=== PATIENT | female | born 1945 | race Caucasian/White ===

== ENCOUNTER 2023-03-27 11:30 | Inpatient (IN) | payer MEDICARE ==
[2023-03-27 12:05] LABS: #Basophils 0.1 10x3/uL (0.0-0.2); #Eosinphils 0.2 10x3/uL (0.0-0.5); #Monocytes 0.7 10x3/uL (0.0-1.1); #Neutrophils 6.7 10x3/uL (1.5-8.4); %Basophils 0.5 % (0.0-2.0); %Eosinophils 1.8 % (0.0-6.0); %Monocytes 7.6 % (0.0-10.0); %Neutrophils 72.8 % (40.0-75.0); Hemoglobin 14.2 g/dL (12.0-15.5); Mean Corpuscular HGB CONC 33.6 g/dL (32.0-36.0); Mean Corpuscular Volume 95.3 fl (81.6-98.3); Mean Platelet Volume 10.3 fl (7.4-10.4); Platelet Count 265 10x3/uL (150-450); RBC Distribution Width 13.3 % (11.5-14.5); Red Blood Cell (RBC) Count 4.44 10x6/uL (3.90-5.03); White Blood Cell (WBC) Count 9.2 10x3/uL (3.5-10.5)
[2023-03-27 12:18] LABS: ALT (SGPT) 16 U/L (8-55); AST (SGOT) 23 U/L (5-34); Albumin 4.4 g/dL (3.4-4.8); Alkaline Phosphatase 105 U/L (40-110); Anion Gap 16 mmol/L (10-20); BUN (Urea Nitrogen) 18 mg/dL (9.8-20.1); Bilirubin, Total 0.6 mg/dL (0.2-1.2); Calc. Creatinine Clearance 0 mL/min (70-130); Calcium 9.4 mg/dL (7.8-10.44); Carbon Dioxide 26 mmol/L (23-31); Chloride 98 mmol/L (98-107); Estimated GFR 63; Globulin 3.2 g/dL (2.4-3.5); Glucose 90 mg/dL (83-110); Potassium 4.4 mmol/L (3.5-5.1); Protein, Total 7.6 g/dL (5.8-8.1); Sodium 136 mmol/L (136-145)
[2023-03-27] MEDS ORDERED: Diltiazem 125 MG/25 ML SDV ONE (12:23)
[2023-03-27] MEDS ORDERED: Acetaminophen 325 MG TAB PO PRN (14:52)
[2023-03-27] MEDS ORDERED: Diltiazem 125 MG in Sodium Chloride 0.9% 100 ML IVPB SCH ×2 (15:00→16:16)
[2023-03-27 19:57] VITALS: BMI 28.0
[2023-03-27] MEDS ORDERED: Atorvastatin Calcium 40 MG TAB ONE (20:52)
[2023-03-27] MEDS ORDERED: Gabapentin 300 MG CAP ONE (20:52)
[2023-03-27] MEDS ORDERED: Atorvastatin Calcium 40 MG TAB PO SCH ×2 (21:00)
[2023-03-27] MEDS ORDERED: Gabapentin 300 MG CAP PO SCH (21:00)
[2023-03-28 04:06] LABS: Anion Gap 15 mmol/L (10-20); BUN (Urea Nitrogen) 25 mg/dL (9.8-20.1); Calc. Creatinine Clearance 51 mL/min (70-130); Calcium 8.2 mg/dL (7.8-10.44); Carbon Dioxide 26 mmol/L (23-31); Chloride 99 mmol/L (98-107); Estimated GFR 53; Glucose 89 mg/dL (83-110); Sodium 136 mmol/L (136-145)
[2023-03-28 04:09] LABS: #Basophils 0.1 10x3/uL (0.0-0.2); #Eosinphils 0.2 10x3/uL (0.0-0.5); #Monocytes 0.6 10x3/uL (0.0-1.1); #Neutrophils 4.1 10x3/uL (1.5-8.4); %Basophils 0.8 % (0.0-2.0); %Eosinophils 2.9 % (0.0-6.0); %Lymphocytes 24.2 % (18.0-47.0); %Monocytes 9.3 % (0.0-10.0); %Neutrophils 62.6 % (40.0-75.0); Hemoglobin 10.3 g/dL (12.0-15.5); Mean Corpuscular HGB CONC 34.1 g/dL (32.0-36.0); Mean Corpuscular Hemoglobin 32.3 pg (27.0-33.0); Mean Corpuscular Volume 94.7 fl (81.6-98.3); Mean Platelet Volume 10.2 fl (7.4-10.4); Platelet Count 205 10x3/uL (150-450); RBC Distribution Width 13.3 % (11.5-14.5); Red Blood Cell (RBC) Count 3.19 10x6/uL (3.90-5.03); White Blood Cell (WBC) Count 6.5 10x3/uL (3.5-10.5)
[2023-03-28] MEDS ORDERED: Dronedarone HCl 400 MG TAB PO SCH (08:00)
[2023-03-28] MEDS ORDERED: Oxybutynin ER 5 MG TAB PO SCH (09:00)
[2023-03-28] MEDS ORDERED: Clopidogrel Bisulfate 75 MG TAB PO SCH (09:00)
[2023-03-28] MEDS ORDERED: Escitalopram Oxalate 10 mg Tablet PO SCH (09:00)
[2023-03-28] MEDS ORDERED: Aspirin 81 mg Enteric Coated Tablet PO SCH ×2 (09:00)
[2023-03-28] MEDS ORDERED: Aspirin 81 mg Enteric Coated Tablet ONE (09:11)
[2023-03-28] MEDS ORDERED: Aspirin Chewable 81 MG TAB ONE (09:11)
[2023-03-28 12:04] LABS: Hemoglobin 11.7 g/dL (12.0-15.5)
[2023-03-28 12:12] VITALS: BP 135/73; TEMP 97.5
[2023-03-28] MEDS ORDERED: Apixaban 5 MG TAB PO SCH (21:00)
== END 2023-03-28 12:55 | disposition home or self-care (01) | DRG 309 ==
LOC: CSHERS 11:30 → CSHERHOLD 19:44
PROVIDERS: ADMIT Family Medicine; ATTEND Family Medicine
DX: I48.92 Unspecified atrial flutter (principal); J98.11 Atelectasis; I69.311 Memory deficit following cerebral infarction; I10 Essential (primary) hypertension; E78.5 Hyperlipidemia, unspecified; G62.9 Polyneuropathy, unspecified; M54.9 Dorsalgia, unspecified; G89.29 Other chronic pain; F39 Unspecified mood [affective] disorder; I48.91 Unspecified atrial fibrillation; I95.9 Hypotension, unspecified; R00.1 Bradycardia, unspecified; F03.90 Unspecified dementia, unspecified severity, without behavioral disturbance, psychotic disturbance, mood disturbance, and anxiety; Z87.891 Personal history of nicotine dependence; Z98.49 Cataract extraction status, unspecified eye; Z80.1 Family history of malignant neoplasm of trachea, bronchus and lung; Z98.890 Other specified postprocedural states; Z79.899 Other long term (current) drug therapy; Z79.82 Long term (current) use of aspirin; Z82.3 Family history of stroke
CPT/HCPCS: 36415; 70450; 71045; 80048; 80053; 84443; 84484; 85025; 93005; 93306; 96365; 96366; 96372; 96376; J1650

== ENCOUNTER 2023-06-05 22:41 | Emergency (ER) | payer MEDICARE ==
[2023-06-06 00:04] LABS: #Basophils 0.1 10x3/uL (0.0-0.2); #Eosinphils 0.2 10x3/uL (0.0-0.5); #Monocytes 0.4 10x3/uL (0.0-1.1); #Neutrophils 4.1 10x3/uL (1.5-8.4); %Basophils 0.8 % (0.0-2.0); %Eosinophils 3.1 % (0.0-6.0); %Lymphocytes 27.8 % (18.0-47.0); Hemoglobin 12.1 g/dL (12.0-15.5); Mean Corpuscular HGB CONC 33.4 g/dL (32.0-36.0); Mean Corpuscular Hemoglobin 31.9 pg (27.0-33.0); Mean Corpuscular Volume 95.5 fl (81.6-98.3); Mean Platelet Volume 11.2 fl (7.4-10.4); Platelet Count 252 10x3/uL (150-450); RBC Distribution Width 12.4 % (11.5-14.5); Red Blood Cell (RBC) Count 3.79 10x6/uL (3.90-5.03); White Blood Cell (WBC) Count 6.6 10x3/uL (3.5-10.5)
[2023-06-06 00:29] LABS: ALT (SGPT) 21 U/L (8-55); AST (SGOT) 23 U/L (5-34); Albumin 3.9 g/dL (3.4-4.8); Alkaline Phosphatase 100 U/L (40-110); Anion Gap 14 mmol/L (10-20); BUN (Urea Nitrogen) 20 mg/dL (9.8-20.1); Bilirubin, Total 0.8 mg/dL (0.2-1.2); Calc. Creatinine Clearance 0 mL/min (70-130); Calcium 9.2 mg/dL (7.8-10.44); Carbon Dioxide 25 mmol/L (23-31); Chloride 105 mmol/L (98-107); Estimated GFR 53; Globulin 3.3 g/dL (2.4-3.5); Glucose 89 mg/dL (83-110); Potassium 4.1 mmol/L (3.5-5.1); Protein, Total 7.2 g/dL (5.8-8.1); Sodium 140 mmol/L (136-145)
== END 2023-06-06 04:20 | disposition home or self-care (01) ==
LOC: CSHERS 22:41
DX: I48.91 Unspecified atrial fibrillation (principal); J90 Pleural effusion, not elsewhere classified; R06.02 Shortness of breath; Z87.891 Personal history of nicotine dependence
CPT/HCPCS: 71045; 80053; 83880; 84484; 85025; 93005

== ENCOUNTER 2025-08-25 17:44 | Inpatient (IN) | payer MEDICARE ==
[2025-08-25 19:44] VITALS: BMI 25.7
[2025-08-25] MEDS ORDERED: Ondansetron PF 4 MG/2 ML Vial IVP PRN (19:55)
[2025-08-25] MEDS ORDERED: Acetaminophen 325 MG TAB PO PRN (19:55)
[2025-08-25] MEDS ORDERED: Guaifenesin DM 100-10/5 ML UDCUP PO PRN (19:55)
[2025-08-25] MEDS ORDERED: Electrolyte Replacement Protocol 1 EACH FS PRN (20:00)
[2025-08-25 20:49] LABS: #Basophils 0.04 10x3/uL (0.0-0.2); #Eosinophils Less than 0.03 10x3/uL (0.0-0.5); #Monocytes 0.88 10x3/uL (0.0-1.1); #Neutrophils 16.30 10x3/uL (1.5-8.4); %Basophils 0.2 % (0.0-2.0); %Eosinophils 0.1 % (0.0-6.0); %Lymphocytes 7.2 % (18.0-47.0); %Monocytes 4.7 % (0.0-10.0); %Neutrophils 87.5 % (40.0-75.0); Hematocrit 43.0 % (34.9-44.5); Hemoglobin 14.5 g/dL (12.0-15.5); Mean Corpuscular Hemoglobin 30.0 pg (27.0-33.0); Mean Corpuscular Volume 89.0 fL (81.6-98.3); Platelet Count 293 10x3/uL (150-450); Red Blood Cell (RBC) Count 4.83 10x6/uL (3.90-5.03); White Blood Cell (WBC) Count 18.62 10x3/uL (3.5-10.5)
[2025-08-25 21:04] LABS: ALT (SGPT) 8 U/L (Less than 34); AST (SGOT) 24 U/L (11-34); Albumin 3.4 g/dL (3.1-4.5); Alkaline Phosphatase 88 U/L (40-110); Anion Gap 15 mmol/L (10-20); BUN (Urea Nitrogen) 22 mg/dL (9.8-20.1); Bilirubin, Total 1.0 mg/dL (0.3-1.2); Calc. Creatinine Clearance 36 mL/min (70-130); Calcium 8.9 mg/dL (7.8-10.44); Carbon Dioxide 26 mmol/L (23-31); Chloride 102 mmol/L (98-107); Globulin 4.1 g/dL (2.4-3.5); Glucose 101 mg/dL (83-110); Potassium 3.8 mmol/L (3.5-5.1); Sodium 139 mmol/L (136-145)
[2025-08-25 21:08] LABS: Troponin I 0.176 ng/mL (< 0.028)
[2025-08-25] MEDS: Pantoprazole 40 MG VIAL IVP SCH (22:15)
[2025-08-25] MEDS: Communication Order-Pharmacy FS ONE (22:57)
[2025-08-25 23:38] LABS: Troponin I 0.132 ng/mL (< 0.028)
[2025-08-26 05:32] LABS: #Basophils 0.05 10x3/uL (0.0-0.2); #Eosinophils Less than 0.03 10x3/uL (0.0-0.5); #Monocytes 0.87 10x3/uL (0.0-1.1); #Neutrophils 14.56 10x3/uL (1.5-8.4); %Basophils 0.3 % (0.0-2.0); %Eosinophils 0.1 % (0.0-6.0); %Lymphocytes 7.8 % (18.0-47.0); %Monocytes 5.2 % (0.0-10.0); %Neutrophils 86.2 % (40.0-75.0); Hematocrit 37.8 % (34.9-44.5); Hemoglobin 12.7 g/dL (12.0-15.5); Mean Corpuscular Hemoglobin 30.0 pg (27.0-33.0); Mean Corpuscular Volume 89.4 fL (81.6-98.3); Platelet Count 249 10x3/uL (150-450); Red Blood Cell (RBC) Count 4.23 10x6/uL (3.90-5.03); White Blood Cell (WBC) Count 16.88 10x3/uL (3.5-10.5)
[2025-08-26 05:48] LABS: ALT (SGPT) 7 U/L (Less than 34); AST (SGOT) 19 U/L (11-34); Albumin 2.8 g/dL (3.1-4.5); Alkaline Phosphatase 75 U/L (40-110); Anion Gap 13 mmol/L (10-20); BUN (Urea Nitrogen) 20 mg/dL (9.8-20.1); Bilirubin, Total 1.0 mg/dL (0.3-1.2); Calc. Creatinine Clearance 47 mL/min (70-130); Calcium 8.1 mg/dL (7.8-10.44); Carbon Dioxide 27 mmol/L (23-31); Cardiac Risk 3.0 (Less than 4.5); Chloride 104 mmol/L (98-107); Cholesterol 123 mg/dl (< 200 Desired); Globulin 3.2 g/dL (2.4-3.5); Glucose 86 mg/dL (83-110); HDL Cholesterol 41 mg/dL (>60 Neg Risk); LDL Cholesterol, Calculated 66 mg/dL; Magnesium 1.6 mg/dL (1.6-2.6); Potassium 3.8 mmol/L (3.5-5.1); Sodium 140 mmol/L (136-145); Triglycerides 78 mg/dL (Less than 150)
[2025-08-26] MEDS: Magnesium 2 GM/50 ML(in water) 2 GM in Premix 1 BAG IVPB SCH (10:10)
[2025-08-26] MEDS: Pantoprazole 40 MG VIAL IVP SCH (10:11)
[2025-08-26] MEDS: Enoxaparin 80 MG (0.8 mL) SYRINGE SC SCH (10:11)
[2025-08-26] MEDS: Aspirin Chewable 81 MG TAB PO SCH (10:11)
[2025-08-26] MEDS: Lidocaine 2% Viscous Solution 10 ML, Aluminum & Magnesium Hydroxide 30 ML SSW SCH (13:32)
[2025-08-27 05:15] LABS: #Basophils 0.05 10x3/uL (0.0-0.2); #Eosinophils 0.09 10x3/uL (0.0-0.5); #Monocytes 0.52 10x3/uL (0.0-1.1); #Neutrophils 6.79 10x3/uL (1.5-8.4); %Basophils 0.6 % (0.0-2.0); %Eosinophils 1.0 % (0.0-6.0); %Lymphocytes 15.0 % (18.0-47.0); %Monocytes 5.9 % (0.0-10.0); %Neutrophils 77.3 % (40.0-75.0); Hematocrit 32.5 % (34.9-44.5); Hemoglobin 10.9 g/dL (12.0-15.5); Mean Corpuscular Hemoglobin 30.1 pg (27.0-33.0); Mean Corpuscular Volume 89.8 fL (81.6-98.3); Platelet Count 212 10x3/uL (150-450); Red Blood Cell (RBC) Count 3.62 10x6/uL (3.90-5.03); White Blood Cell (WBC) Count 8.79 10x3/uL (3.5-10.5)
[2025-08-27 05:28] LABS: Anion Gap 8 mmol/L (10-20); BUN (Urea Nitrogen) 10 mg/dL (9.8-20.1); Calc. Creatinine Clearance 63 mL/min (70-130); Calcium 8.0 mg/dL (7.8-10.44); Carbon Dioxide 29 mmol/L (23-31); Chloride 104 mmol/L (98-107); Glucose 91 mg/dL (83-110); Magnesium 1.8 mg/dL (1.6-2.6); Potassium 3.3 mmol/L (3.5-5.1); Sodium 138 mmol/L (136-145)
[2025-08-27] MEDS: Magnesium 2 GM/50 ML(in water) 2 GM in Premix 1 BAG IVPB SCH (08:25)
[2025-08-27 13:49] VITALS: BMI 25.7
[2025-08-27 13:50] LABS: Potassium 3.8 mmol/L (3.5-5.1)
[2025-08-27 17:47] LABS: Hematocrit 34.3 % (34.9-44.5); Hemoglobin 11.3 g/dL (12.0-15.5)
[2025-08-28 05:35] LABS: #Basophils 0.04 10x3/uL (0.0-0.2); #Eosinophils 0.18 10x3/uL (0.0-0.5); #Monocytes 0.48 10x3/uL (0.0-1.1); #Neutrophils 5.59 10x3/uL (1.5-8.4); %Basophils 0.5 % (0.0-2.0); %Eosinophils 2.4 % (0.0-6.0); %Lymphocytes 14.1 % (18.0-47.0); %Monocytes 6.5 % (0.0-10.0); %Neutrophils 76.2 % (40.0-75.0); Hematocrit 31.5 % (34.9-44.5); Hemoglobin 10.3 g/dL (12.0-15.5); Mean Corpuscular Hemoglobin 30.1 pg (27.0-33.0); Mean Corpuscular Volume 92.1 fL (81.6-98.3); Platelet Count 197 10x3/uL (150-450); Red Blood Cell (RBC) Count 3.42 10x6/uL (3.90-5.03); White Blood Cell (WBC) Count 7.35 10x3/uL (3.5-10.5)
[2025-08-28 05:46] LABS: Anion Gap 8 mmol/L (10-20); BUN (Urea Nitrogen) 9 mg/dL (9.8-20.1); Calc. Creatinine Clearance 68 mL/min (70-130); Calcium 8.2 mg/dL (7.8-10.44); Carbon Dioxide 28 mmol/L (23-31); Chloride 106 mmol/L (98-107); Glucose 102 mg/dL (83-110); Magnesium 2.1 mg/dL (1.6-2.6); Potassium 3.8 mmol/L (3.5-5.1); Sodium 138 mmol/L (136-145)
[2025-08-28] MEDS ORDERED: PROPOFOL 40 ML ONE (14:29)
[2025-08-28] MEDS ORDERED: Communication Order-Pharmacy FS SCH (15:30)
[2025-08-28 15:42] LABS: Campy jejuni + coli by PCR Negative (Negative); STEC Shiga Toxin 1+2 Negative (Negative); Salmonella spp. by PCR Negative (Negative); Shigella spp + EIEC by PCR Negative (Negative)
[2025-08-29 04:38] LABS: #Basophils 0.05 10x3/uL (0.0-0.2); #Eosinophils 0.28 10x3/uL (0.0-0.5); #Monocytes 0.39 10x3/uL (0.0-1.1); #Neutrophils 3.21 10x3/uL (1.5-8.4); %Basophils 0.9 % (0.0-2.0); %Eosinophils 5.2 % (0.0-6.0); %Lymphocytes 27.2 % (18.0-47.0); %Monocytes 7.2 % (0.0-10.0); %Neutrophils 59.3 % (40.0-75.0); Hematocrit 29.8 % (34.9-44.5); Hemoglobin 9.9 g/dL (12.0-15.5); Mean Corpuscular Hemoglobin 30.2 pg (27.0-33.0); Mean Corpuscular Volume 90.9 fL (81.6-98.3); Platelet Count 201 10x3/uL (150-450); Red Blood Cell (RBC) Count 3.28 10x6/uL (3.90-5.03); White Blood Cell (WBC) Count 5.41 10x3/uL (3.5-10.5)
[2025-08-29 05:26] LABS: ALT (SGPT) 9 U/L (Less than 34); AST (SGOT) 22 U/L (11-34); Albumin 2.6 g/dL (3.1-4.5); Alkaline Phosphatase 50 U/L (40-110); Anion Gap 9 mmol/L (10-20); BUN (Urea Nitrogen) 5 mg/dL (9.8-20.1); Bilirubin, Total 0.6 mg/dL (0.3-1.2); Calc. Creatinine Clearance 69 mL/min (70-130); Calcium 8.2 mg/dL (7.8-10.44); Carbon Dioxide 31 mmol/L (23-31); Chloride 107 mmol/L (98-107); Globulin 2.8 g/dL (2.4-3.5); Glucose 89 mg/dL (83-110); Potassium 3.9 mmol/L (3.5-5.1); Sodium 143 mmol/L (136-145)
[2025-08-29 05:56] LABS: INR-International Normal Ratio 1.1; PTT 28.7 sec (22.0-33.0); Prothrombin Time 11.7 sec (9.5-12.1)
[2025-08-29] MEDS ORDERED: PHENYLEPHRINE-NS 100 MCG/ML 10 ML SYRINGE ONE (06:59)
[2025-08-29] MEDS ORDERED: Heparin 10,000 UNITS/ 10 ML VIAL ONE (07:00)
[2025-08-29] MEDS ORDERED: Lidocaine 1% (PF) 30 ML VIAL ONE (07:00)
[2025-08-29] MEDS ORDERED: Nitroglycerin 50 MG/250 ML BOT 250 ML ONE (08:57)
[2025-08-29] MEDS ORDERED: Nitroglycerin 0.4 MG TAB (25 Tab Bottle) SL PRN (09:30)
[2025-08-29] MEDS ORDERED: Acetaminophen/Codeine 30-300mg Tablet PO PRN (09:30)
[2025-08-29] MEDS ORDERED: Iopamidol 300 61% 100 ML VIAL FS ONE (09:34)
[2025-08-30 11:29] VITALS: BP 136/75; TEMP 98.5
== END 2025-08-30 14:23 | disposition home or self-care (01) | DRG 871 ==
LOC: CSHTELE 19:17 → INTOOBSV 19:17 → OBSVTOIN 08-27 09:15
PROVIDERS: ADMIT Internal Medicine; ATTEND Family Medicine
PROC: 3E03329 Introduction of Other Anti-infective into Peripheral Vein, Percutaneous Approach (ICD-10-PCS; 2025-08-25)
PROC: 0DB68ZX Excision of Stomach, Via Natural or Artificial Opening Endoscopic, Diagnostic (ICD-10-PCS; 2025-08-28)
PROC: 0DJD8ZZ Inspection of Lower Intestinal Tract, Via Natural or Artificial Opening Endoscopic (ICD-10-PCS; 2025-08-28)
PROC: B2111ZZ Fluoroscopy of Multiple Coronary Arteries using Low Osmolar Contrast (ICD-10-PCS; principal; 2025-08-29)
PROC: 4A023N7 Measurement of Cardiac Sampling and Pressure, Left Heart, Percutaneous Approach (ICD-10-PCS; 2025-08-29)
PROC: B2151ZZ Fluoroscopy of Left Heart using Low Osmolar Contrast (ICD-10-PCS; 2025-08-29)
DX: A41.9 Sepsis, unspecified organism (principal); I21.A1 Myocardial infarction type 2; N17.9 Acute kidney failure, unspecified; D62 Acute posthemorrhagic anemia; R65.20 Severe sepsis without septic shock; A08.4 Viral intestinal infection, unspecified; K44.9 Diaphragmatic hernia without obstruction or gangrene; I48.0 Paroxysmal atrial fibrillation; I25.10 Atherosclerotic heart disease of native coronary artery without angina pectoris; E78.5 Hyperlipidemia, unspecified; R94.5 Abnormal results of liver function studies; E86.0 Dehydration; N18.30 Chronic kidney disease, stage 3 unspecified; K64.8 Other hemorrhoids; K21.00 Gastro-esophageal reflux disease with esophagitis, without bleeding; K29.60 Other gastritis without bleeding; Z86.73 Personal history of transient ischemic attack (TIA), and cerebral infarction without residual deficits; Z98.890 Other specified postprocedural states; Z79.82 Long term (current) use of aspirin; Z79.02 Long term (current) use of antithrombotics/antiplatelets
CPT/HCPCS: 36415; 80048; 80053; 80061; 82274; 83605; 83630; 83735; 84100; 85025; 85610; 85730; 87015; 87206; 87505; 87798; 88305; 88342; 93005; 93010; 93306; 93458; 96372; 96374; 96375; 96376; 99152; C1769; C1894; G0378; J0461; J1644; J1650; J2250; J2470; J2543; J2704; J3475; J7030; J7120; Q9967

== ENCOUNTER 2025-10-15 14:01 | Emergency (ER) | payer MEDICARE ==
[~2025-10-15 14:01] MED LIST: Iopamidol 370 76% 100 ML VIAL ONE
[2025-10-15 14:25] LABS: #Basophils 0.05 10x3/uL (0.0-0.2); #Eosinophils 0.19 10x3/uL (0.0-0.5); #Monocytes 0.35 10x3/uL (0.0-1.1); #Neutrophils 4.28 10x3/uL (1.5-8.4); %Basophils 0.7 % (0.0-2.0); %Eosinophils 2.6 % (0.0-6.0); %Lymphocytes 32.6 % (18.0-47.0); %Monocytes 4.8 % (0.0-10.0); %Neutrophils 59.2 % (40.0-75.0); Hematocrit 37.4 % (34.9-44.5); Hemoglobin 12.3 g/dL (12.0-15.5); Mean Corpuscular Hemoglobin 30.8 pg (27.0-33.0); Mean Corpuscular Volume 93.5 fL (81.6-98.3); Platelet Count 223 10x3/uL (150-450); Red Blood Cell (RBC) Count 4.00 10x6/uL (3.90-5.03); White Blood Cell (WBC) Count 7.24 10x3/uL (3.5-10.5)
[2025-10-15 14:33] LABS: INR-International Normal Ratio 1.1; PTT 25.1 sec (22.0-33.0); Prothrombin Time 11.5 sec (9.5-12.1)
[2025-10-15] MEDS ORDERED: Heparin 10,000 UNITS/ 10 ML VIAL ONE (14:56)
[2025-10-15 15:01] LABS: ALT (SGPT) 11 U/L (Less than 34); AST (SGOT) 24 U/L (11-34); Albumin 4.1 g/dL (3.1-4.5); Alkaline Phosphatase 126 U/L (40-110); Anion Gap 15 mmol/L (10-20); BUN (Urea Nitrogen) 16 mg/dL (9.8-20.1); Bilirubin, Total 0.9 mg/dL (0.3-1.2); Calc. Creatinine Clearance 0 mL/min (70-130); Calcium 9.6 mg/dL (7.8-10.44); Carbon Dioxide 24 mmol/L (23-31); Chloride 107 mmol/L (98-107); Globulin 3.5 g/dL (2.4-3.5); Glucose 162 mg/dL (83-110); Potassium 4.3 mmol/L (3.5-5.1); Sodium 142 mmol/L (136-145)
== END 2025-10-15 16:04 | disposition short-term general hospital (02) ==
LOC: CSHERS 14:01
DX: I77.9 Disorder of arteries and arterioles, unspecified (principal); R29.701 NIHSS score 1; I50.9 Heart failure, unspecified; N18.9 Chronic kidney disease, unspecified; Z86.73 Personal history of transient ischemic attack (TIA), and cerebral infarction without residual deficits; Z87.891 Personal history of nicotine dependence
CPT/HCPCS: 70450; 70496; 70498; 75635; 80053; 82550; 82962; 83605; 85025; 85610; 85730; 93005; 94760; 96374; 96375; 99285; J1644 ×2; J3010; Q9967; 36415; 36416